=== PATIENT | female | born 1975 | race Two or more races ===

== ENCOUNTER 2016-04-09 02:53 | Inpatient (IN) | payer OTHER ==
[~2016-04-09] VITALS: Ht 165.1 cm; Wt 71.6 kg
[~2016-04-09 02:53] MED LIST: ATIVAN1 MG PO; BACTRIM,SEPT1 TABLET PO; BENADRYL50 MG PO; BENZTROPINE MESY2 MG PO; BUPROPION XL150 MG PO; BUSPAR30 MG PO; CELEXA20 MG PO; CITALOPRAM HBR20 MG PO; FERROUS SULFAT325 MG PO; FOLIC ACID1 MG PO; HALDOL5 MG PO; HALOPERIDOL5 MG PO; IBUPROFEN200 M1 PO; IRON325 MG PO; NAPROSYN500 MG PO; NICOTINE PATCH1 EAC2 TD; PRED FORTE100 DROP/5 BOTH EYES; PROTONIX40 MG PO; RISPERDAL2 MG PO; RISPERIDONE0.5 MG PO; Thiamine,Vitamin B1 PO; Vitamin B-12 PO; WELLBUTRIN XL150 MG PO; ZOLPIDEM TARTRA10 MG PO
[2016-04-09 10:08] VITALS: BP 130/79
[2016-04-09 10:10] VITALS: BP 130/79
[2016-04-09 15:42] VITALS: BP 145/78
[2016-04-10 08:01] VITALS: BP 144/72
[2016-04-10 15:36] VITALS: BP 111/67
[2016-04-11 07:42] VITALS: BP 126/67
[2016-04-11 15:32] VITALS: BP 130/84
[2016-04-12 07:43] VITALS: BP 110/58
[2016-04-12 15:40] VITALS: BP 118/68
[2016-04-13 07:53] VITALS: BP 119/60
[2016-04-13 15:56] VITALS: BP 106/55
[2016-04-14 07:46] VITALS: BP 103/63
[2016-04-14] MEDS ORDERED: QUETIAPINE FUM300 MG PO (11:18)
== END 2016-04-14 13:00 | disposition home or self-care (01) | DRG 885 ==
LOC: EME 02:53 → 1WEST 07:34 → EDOF 07:34 → 1WEST 10:00
DX: F25.9 Schizoaffective disorder, unspecified (principal); F31.2 Bipolar disorder, current episode manic severe with psychotic features; G21.19 Other drug induced secondary parkinsonism; G25.71 Drug induced akathisia; F17.210 Nicotine dependence, cigarettes, uncomplicated; G25.81 Restless legs syndrome
CPT/HCPCS: 70450; 80048; 81003; 84484; 84999; 85025; 90839; 93005; 97150 GO; 97165 GO; 99281; 99284; 99285; G0480; J7030